=== PATIENT | female | born 2000 | race Caucasian/White ===

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

== ENCOUNTER 2021-01-11 06:26 | Emergency (ER) | payer OTHER, SELFPAY ==
[2021-01-11 06:45] VITALS: BP 115/66; PULSE 64; RESP 20; TEMP 36.2; O2SAT 99
--- NOTE | 2021-01-11 07:01 | ED.HA ---
HPI - Headache General Chief Complaint: Headache Stated Complaint: headache/vomiting Time Seen by Provider: 01/11/21 07:01 Source: patient, family and RN notes reviewed Mode of arrival: ambulatory Limitations: no limitations History of Present Illness MD elicited complaint: headache Onset description: suddenly and while at rest Location: frontal and temporal Severity: moderate Quality & Timing: throbbing and first headache Exacerbating factors: none Relieving factors: dark room Context: occurred at rest Associated symptoms: nausea and vomiting Treatments prior to arrival: none Related Data Home Medications Medication Instructions Recorded Confirmed No Home Medications 01/11/21 01/11/21 Allergies Allergy/AdvReac Type Severity Reaction Status Date / Time No Known Allergies Allergy Verified 01/11/21 06:44 Review of Systems Review of Systems: All systems reviewed & are unremarkable except as noted in HPI and below PMFSH Past Medical History Medical History (Updated 01/11/21 @ 07:29 by Rufus Buck MD) No active medical problems Surgical History Surgical History (Updated 01/11/21 @ 07:05 by Rufus Buck MD) No pertinent past surgical history Social History Social History (Updated 01/11/21 @ 07:05 by Rufus Buck MD) Smoking status: Never smoker Alcohol intake: never Substance use: never Exam Const: General: healthy appearing and no acute distress Nutritional Appearance: well nourished Orientation/consciousness: patient oriented x3 Other: female nurse in room during examination HENMT: Head: normal to inspection Ears: external ears normal and TM's normal bilaterally Face and sinus: normal facial exam Mouth: Yes moist mucous membranes abnormal Eyes: Conjunctivae: conjunctivae normal Pupils: Equal, round and reactive pupils present EOM: EOMs intact bilaterally Neck: Neck: normal visual inspection Resp: Effort & Inspection: normal respiratory effort Auscultation: clear to auscultation bilaterally Cardio: Rate: regular rate Rhythm: regular rhythm GI: GI Palp: Yes Soft to palpation and No Tenderness to palpation present (GI) Auscultation: normal bowel sounds Back/Spine/Pelvis: Cervical Spine: cervical ROM normal Thoracic/Lumbar Spine: thoraco-lumbar ROM normal Skin: General skin exam: normal color Rashes: no rashes Neuro: General: patient oriented x3, moves all extremities, no meningeal signs and no focal motor deficits Speech: normal speech Gait exam (Neuro): Normal gait present Extrem: General: normal to inspection and no clubbing, cyanosis or edema Psych: Appearance: grossly normal and well kempt Mental Status: mental status grossly normal Affect: normal affect Attitude: cooperative Thought content: Yes Normal thought content present Course Vital Signs Vital signs: Vital Signs Temperature 36.2 C L 01/11/21 06:45 Pulse Rate 64 01/11/21 06:45 Respiratory Rate 20 01/11/21 06:45 Blood Pressure 115/66 01/11/21 06:45 Pulse Oximetry 99 01/11/21 06:45 Temperature 36.2 C L 01/11/21 06:45 Pulse Rate 64 01/11/21 06:45 Respiratory Rate 14 01/11/21 08:00 Blood Pressure 115/66 01/11/21 06:45 Pulse Oximetry 99 01/11/21 06:45 Discharge Plan Discharge Clinical Impression: Tension headache Patient Disposition: Home, Self-Care Condition: Stable Instructions: Tension Headache (ED) Additional Instructions: Home and rest in a quiet dark room. Prescriptions: No Action No Home Medications RF: 0 Follow-up/Referrals: Davdi Castillo MD [Primary Care Provider] - Time of Disposition: 07:29
--- NOTE | 2021-01-11 07:06 | PC.NURSE ---
Report to RAMSES Weinstein
[2021-01-11] MEDS: KETOROLAC 30 MG/ML VIAL (*BKC) IV PUSH (07:24)
[2021-01-11] MEDS: diphenhydrAMINE HCl INJ 50 MG/ML VIAL IV PUSH (07:24)
[2021-01-11] MEDS: ONDANSETRON INJ 4 MG/2 ML VIAL IV PUSH (07:24)
[2021-01-11 08:00] VITALS: RESP 14
== END 2021-01-11 08:00 | disposition home or self-care (01) ==
PROVIDERS: Emergency Provider Emergency Medicine; PCP Internal Medicine
DX: G44.209 Tension-type headache, unspecified, not intractable (principal)
CPT/HCPCS: 96374; 96375; 99283; 99284; J1200; J1885; J2405

== ENCOUNTER 2021-01-11 13:48 | Outpatient (CLI) | payer OTHER, SELFPAY ==
--- NOTE | ~2021-01-11 | CT_ITS ---
EXAMINATION: CT brain wo con INDICATION: Headache COMPARISON: None TECHNIQUE: Standard unenhanced head CT. The dose-length product (DLP) was 605.33 mGy-cm. The mA was a djusted according to patient size. Iterative reconstruction technique was employed. FINDINGS: There is no intracranial hemorrhage, acute infarction, or abnormal mass lesion. The ventric les are normal. There is no abnormal mass effect or midline shift. The pratt-white matter differentiat ion is normal. The basal cisterns are patent. The orbits are normal. The paranasal sinuses, mastoids and calvarium are normal. IMPRESSION: 1. No acute intracranial abnormality. Reviewed, dictated and finalized at location A.
== END 2021-01-11 13:49 | disposition home or self-care (01) ==
LOC: CHSIMG 13:51
PROVIDERS: PCP Internal Medicine; Visit Provider Internal Medicine
DX: R51.9 Headache, unspecified (principal)
CPT/HCPCS: 70450

== ENCOUNTER 2021-01-20 06:05 | Emergency (ER) | payer OTHER, SELFPAY ==
--- NOTE | ~2021-01-20 | CT_ITS ---
EXAMINATION: CT brain wo con DATE: 01/20/2021 06:39 INDICATION: Transient left hemiparesis TECHNIQUE: Computed tomography (CT) of the head was performed without intravenous contrast. Sagittal and coronal reconstructions were performed. The mA was adjusted according to patient size. Iterative reconstruction technique was employed. The dose-length product was 605.33 mGy-cm. COMPARISON: head CT dated 01/11/2021 FINDINGS: No acute intracranial hemorrhage, acute infarction or abnormal extra axial fluid collection. Ventricl es are normal and symmetric. No mass/mass effect. The orbits, paranasal sinuses and mastoid air cells are normal. IMPRESSION: 1. Normal head CT. Reviewed, dictated and finalized at location A. IMPRESSION: 1. Normal head CT.
[2021-01-20 06:05] VITALS: BP 127/79; PULSE 60; RESP 20; TEMP 36.9; O2SAT 98
--- NOTE | 2021-01-20 06:27 | ED.NEUROSD ---
HPI - Neuro Symptoms/Deficit General Chief Complaint: Neuro Symptoms/Deficit <MD Devin Ansari Last Filed: 01/22/21 14:57> Stated Complaint: Cant feel L leg and arm <MD Devin Ansari Last Filed: 01/22/21 14:57> Time Seen by Provider: 01/20/21 06:05 <MD Devin Ansari Last Filed: 01/22/21 14:57> Source: patient and family <MD Devin Ansari Last Filed: 01/22/21 14:57> Mode of arrival: ambulatory <MD Devin Ansari Last Filed: 01/22/21 14:57> Limitations: no limitations <MD Devni Ansari Last Filed: 01/22/21 14:57> History of Present Illness HPI Narrative: Patient come in after getting up at 5:30 am and having numbness in her left leg, weakness in her left hand, and tingling on the left side of her face around her mouth and tongue. She immediately took Excedrin migraine. She now has essentially no symptoms, and her stroke scale is zero. She had a similar episode while gone on vacation, in [place], she was seen there, admitted for two days, this last Monday and Monday, and worked up by neurology and ID. She was then discharged with studies still pending. She did well until this am <MD Devin Ansari Last Filed: 01/22/21 14:57> Onset (ago): hour(s) <MD Devin Ansari Last Filed: 01/22/21 14:57> Timing confirmed by: family member <MD Devin Ansari Last Filed: 01/22/21 14:57> Location: speech, left arm and left leg <MD Devin Ansari Last Filed: 01/22/21 14:57> Severity: mild <MD Devin Ansari Last Filed: 01/22/21 14:57> Relieving factors: medication <MD Devin Ansari Last Filed: 01/22/21 14:57> Exacerbating factors: none <MD Devin Ansari Last Filed: 01/22/21 14:57> Context: sudden onset <MD Devin Ansari Last Filed: 01/22/21 14:57> On Anticoagulants: Yes <MD Devin Ansari Last Filed: 01/22/21 14:57> Associated symptoms: other (symptoms have now resolved ) <MD Devin Ansari Last Filed: 01/22/21 14:57> Treatments Prior to Arrival: Aspirin <Rufus LMD Devin Sutherland Last Filed: 01/22/21 14:57> Related Data Allergies/Adverse Reactions: Allergies Allergy/AdvReac Type Severity Reaction Status Date / Time No Known Allergies Allergy Verified 01/11/21 06:44 <MD Devin Ansari Last Filed: 01/22/21 14:57> Review of Systems Constitutional: Constitutional: Reports no additional constitutional complaints <Rufus LMD Devin Sutherland Last Filed: 01/22/21 14:57> Eyes: Eyes: Reports no additional eye complaints <Rufus LMD Devin Sutherland Last Filed: 01/22/21 14:57> ENT: Reports system reviewed and no additional complaints, except as documented <Rufus LMD Devin Sutherland Last Filed: 01/22/21 14:57> Cardiovascular: Cardiovascular: Reports no additional cardiovascular complaints <Rufus LMD Devin Sutherland Last Filed: 01/22/21 14:57> Respiratory: Respiratory: Reports no additional respiratory complaints <Rufus LMD Devin Sutherland Last Filed: 01/22/21 14:57> Gastrointestinal: Gastrointestinal: Reports no additional gastrointestinal complaints <Rufus LMD Devin Sutherland Last Filed: 01/22/21 14:57> Genitourinary: Genitourinary: Reports no additional female genitourinary complaints <Rufus LMD Devin Sutherland Last Filed: 01/22/21 14:57> Musculoskeletal: Musculoskeletal: Reports no additional musculoskeletal complaints <Rufus L. MD Devin Bourgeois Last Filed: 01/22/21 14:57> Integumentary/Breasts: Skin/Breast: Reports system reviewed and no additional complaints, except as docu <Rufus LMD Devin Sutherland Last Filed: 01/22/21 14:57> Neurologic: Reports system reviewed and no additional complaints, except as documented <Rufus LMD Devin Sutherland Last Filed: 01/22/21 14:57> Psychiatric: Psychiatric: Reports no additional psychiatric complaints <Rufus L. Day, MD - Last Filed: 01/22/21 14:57> Endocrine: Endocrine: Reports no additional endocrine complaints <Rufus Bourgeois MD - Last Filed: 01/22/21 14:57> Hematologic/Lymphatic: Hematologic/Lymphatic: Reports no additional hematologic
[2021-01-20 06:51] LABS: Add Urine Microscopic? NO; Appearance Urine Clear (Clear); Basophils Absolute Auto 0.02 K/mm3 (0.00-0.10); Basophils Percent Auto 0.3 % (0.0-1.0); Bilirubin Urine Negative (Negative); Blood Urine Negative (Negative); Color Urine Light Yellow (Yellow); Eosinophils Absolute Auto 0.24 K/mm3 (0.02-0.50); Eosinophils Percent Auto 3.2 % (1.0-6.0); Glucose Urine UA Negative (Negative); Hematocrit 40.5 % (35.0-49.0); Hemoglobin 13.6 g/dL (12.0-15.0); Immature Granulocyte Absolute 0.03 K/mm3 (0.00-0.00); Immature Granulocyte Percent A 0.4 % (0.0-0.0); Ketones Urine Negative (Negative); Leukocyte Esterase Ur Negative LEU/UL (Negative); Lymphocytes Absolute Auto 1.84 K/mm3 (1.10-4.50); Lymphocytes Percent Auto 24.6 % (18.0-42.0); Mean Corpuscular HGB Conc 33.6 g/dL (32.0-36.0); Mean Corpuscular Hemoglobin 29.7 pg (27.0-31.0); Mean Corpuscular Volume 88.4 fL (78.0-102.0); Mean Platelet Volume 11.1 fl (9.2-11.8); Monocytes Absolute Auto 0.81 K/mm3 (0.10-0.90); Monocytes Percent Auto 10.8 % (2.0-11.0); Neutrophils Absolute Auto 4.6 K/mm3 (1.7-7.2); Neutrophils Percent Auto 60.7 % (50.0-70.0); Nitrate Urine Negative (Negative); Platelet Count Result 296 K/mm3 (150-420); Protein Urine Negative (Negative); Red Blood Count 4.58 M/mm3 (4.20-5.40); Red Cell Distribution Width 12.2 % (11.6-14.4); Urobilinogen Urine 0.2 mg/dL (0.2-1.0); White Blood Count 7.5 K/mm3 (4.8-10.8); pH Urine 5.5 (5.0-8.0)
[2021-01-20 07:04] LABS: Amphetamine Screen Urine Negative (Negative); Barbiturate Screen Urine Negative (Negative); Benzodiazepines Screen Urine Negative (Negative); Cannabinoid Screen Urine Negative (Negative); Cocaine Screen Urine Negative (Negative); Methadone Screen Urine Negative (Negative); Opiate Screen Urine Negative (Negative); Phencyclidine Screen Urine Negative (Negative)
--- NOTE | 2021-01-20 07:04 | PC.NURSE ---
Pt. resting, no c/o. Report to RAMSES Salmon
[2021-01-20 07:05] LABS: Alanine Aminotransferase 20 U/L (14-59); Albumin Level 3.7 g/dL (3.4-5.0); Alkaline Phosphatase 49 U/L (50-130); Anion Gap 10 mmol/L (8-16); Aspartate Amino Transferase 10 U/L (15-37); Bilirubin,Total 0.6 mg/dL (0.00-1.00); Blood Urea Nitrogen 13 mg/dL (7-18); CRP 0.2 mg/dL (0.0-0.9); Calcium 9.1 mg/dL (8.5-10.1); Carbon Dioxide 28 mmol/L (21-32); Chloride 103 mmol/L (98-108); Estimated CRCL calculation 82 ml/min; Estimated Glomerular Filt Rate > 60; Glucose 92 mg/dL (70-99); Osmolality Calculated 292 mOsm/kg (285-295); Potassium 3.7 mmol/L (3.5-5.1); Sodium 141 mmol/L (136-145); Total Protein 6.7 g/dL (6.4-8.2)
[2021-01-20 07:34] VITALS: BP 117/79; PULSE 69; RESP 14; TEMP 36.6; O2SAT 99
[2021-01-20] MEDS: ACETAMINOPHEN 325 MG TABLET 650 MG PO (07:38)
[2021-01-20 07:51] LABS: Erythrocyte Sedimentation Rate 8 mm/hr (0-15)
--- NOTE | 2021-01-20 08:34 | ED.NEUROSD ---
HPI - Neuro Symptoms/Deficit General Chief Complaint: Neuro Symptoms/Deficit Stated Complaint: Cant feel L leg and arm Time Seen by Provider: 01/20/21 06:05 Source: patient and family Mode of arrival: ambulatory Limitations: no limitations History of Present Illness Location: speech, left arm and left leg Severity: mild Relieving factors: medication Exacerbating factors: none On Anticoagulants: Yes Treatments Prior to Arrival: Aspirin Related Data Allergies Allergy/AdvReac Type Severity Reaction Status Date / Time No Known Allergies Allergy Verified 01/11/21 06:44 Review of Systems Review of Systems: All systems reviewed & are unremarkable except as noted in HPI and below Constitutional: Constitutional: Reports as per HPI and Reports no additional constitutional complaints Eyes: Eyes: Reports as per HPI and Reports no additional eye complaints ENT: Reports system reviewed and no additional complaints, except as documented and Reports as per HPI Cardiovascular: Cardiovascular: Reports as per HPI and Reports no additional cardiovascular complaints Respiratory: Respiratory: Reports as per HPI and Reports no additional respiratory complaints Gastrointestinal: Gastrointestinal: Reports as per HPI and Reports no additional gastrointestinal complaints Genitourinary: Genitourinary: Reports no additional female genitourinary complaints and Reports as per HPI Musculoskeletal: Musculoskeletal: Reports no additional musculoskeletal complaints Integumentary/Breasts: Skin/Breast: Reports system reviewed and no additional complaints, except as docu and Reports as per HPI Neurologic: Reports headache(s), Reports tingling and Reports weakness Comments: Pt sxs were recurrent. Psychiatric: Psychiatric: Reports no additional psychiatric complaints and Reports as per HPI Endocrine: Endocrine: Reports no additional endocrine complaints and Reports as per HPI Hematologic/Lymphatic: Hematologic/Lymphatic: Reports no additional hematologic/lymphatic complaints and Reports as per HPI Allergic/Immunologic: Allergic/Immunologic: Reports no additional allergic/immunologic complaints [facility] Past Medical History Medical History (Updated 01/20/21 @ 13:24 by Angela Chao PA-C) No active medical problems Surgical History Surgical History (Updated 01/20/21 @ 13:14 by Angela Chao PA-C) No history of previous surgery No pertinent past surgical history Family History Family History Other No significant family history Social History Social History (Updated 01/20/21 @ 13:21 by Angela G. Gerling, PA-C) Social History: The patient lives in [place] with her family. Nonsmoker. No alcohol or illicit substance abuse. She designates her mother, Sweetie Gonsalez, as her surrogate decision maker. Code status: Full code. Exam Const: General: cooperative, healthy appearing, comfortable, well developed, alert and awake Nutritional Appearance: well nourished Orientation/consciousness: oriented to person, oriented to place and patient oriented x3 Limitations: no limitations HENMT: Head: normal to inspection, normocephalic and atraumatic Ears: hearing grossly normal bilaterally, external ears normal and TM's normal bilaterally General nose exam: Normal external nose present, Normal nares present and Normal nasal mucous membranes and turbinates present Mouth: Yes Normal oral and palatal mucosa present, Yes lip normal, Yes tongue normal, Yes oropharynx normal and Yes moist mucous membranes Teeth and gingiva: dentition normal and gingiva normal Throat: posterior oropharynx normal, tonsils normal and uvula midline Eyes: General: appearance normal, both eyes and all related structures Visual Douglass: normal visual douglass by confrontation Alignment and Position: alignment normal and position normal Periorbital: periorbital findings normal Eyelids: eyelids
--- NOTE | 2021-01-20 11:20 | PC.NURSE ---
1110 telephone report provided to brice barclay at [facility]. susan paged out for ALS transfer at [phone]
== END 2021-01-20 07:40 | disposition home or self-care (01) ==
PROVIDERS: Emergency Medicine; Emergency Provider Emergency Medicine; PCP Internal Medicine
DX: G43.909 Migraine, unspecified, not intractable, without status migrainosus (principal)
CPT/HCPCS: 36415; 70450; 80053; 80307; 81003; 85025; 85652; 86140; 99282; 99284; A9270

== ENCOUNTER 2021-01-20 08:12 | Emergency (ER) | payer OTHER, SELFPAY ==
[2021-01-20 08:20] VITALS: BP 118/77; PULSE 70; RESP 16; TEMP 36.6; O2SAT 100
[2021-01-20 08:30] VITALS: PULSE 70
--- NOTE | 2021-01-20 08:49 | ED.GENADULT ---
HPI - General Adult General Chief complaint: Unspecified Stated complaint: NUMBNESS ON L SIDE Time Seen by Provider: 01/20/21 08:22 Source: patient, family, RN notes reviewed and old records reviewed Mode of arrival: ambulatory Limitations: no limitations History of Present Illness HPI narrative: Pt returned to the ED, post discharge approx. 30 mins ago. See previous ED chart complaint: Left sided tingling and weakness with recurrent OSORIO Onset (ago): minute(s) Location: head Severity: mild Severity scale (1-10): 5 Quality: aching and dull Pain Consistency: constant Relieving factors: medication Exacerbating factors: none Associated symptoms: other (left sided tingling and weakness) Treatments prior to arrival: none Related Data Allergies Allergy/AdvReac Type Severity Reaction Status Date / Time No Known Allergies Allergy Verified 01/11/21 06:44 Review of Systems Review of Systems: All systems reviewed & are unremarkable except as noted in HPI and below Constitutional: Constitutional: Reports as per HPI and Reports no additional constitutional complaints Eyes: Eyes: Reports as per HPI and Reports no additional eye complaints ENT: Reports system reviewed and no additional complaints, except as documented and Reports as per HPI Cardiovascular: Cardiovascular: Reports as per HPI and Reports no additional cardiovascular complaints Respiratory: Respiratory: Reports as per HPI and Reports no additional respiratory complaints Gastrointestinal: Gastrointestinal: Reports as per HPI and Reports no additional gastrointestinal complaints Genitourinary: Genitourinary: Reports no additional female genitourinary complaints and Reports as per HPI Musculoskeletal: Musculoskeletal: Reports muscle weakness, Reports tingling and Reports other (pt had left sided sxs.) Integumentary/Breasts: Skin/Breast: Reports system reviewed and no additional complaints, except as docu and Reports as per HPI Neurologic: Reports as per HPI, Reports tingling and Reports weakness Psychiatric: Psychiatric: Reports no additional psychiatric complaints and Reports as per HPI Endocrine: Endocrine: Reports no additional endocrine complaints and Reports as per HPI Hematologic/Lymphatic: Hematologic/Lymphatic: Reports no additional hematologic/lymphatic complaints and Reports as per HPI Allergic/Immunologic: Allergic/Immunologic: Reports no additional allergic/immunologic complaints and Reports as per HPI PMFSH Past Medical History Medical History (Updated 01/20/21 @ 13:24 by Angela Chao PA-C) No active medical problems Surgical History Surgical History (Updated 01/20/21 @ 13:14 by Angela Chao PA-C) No history of previous surgery No pertinent past surgical history Family History Family History Other No significant family history Social History Social History (Updated 01/20/21 @ 13:21 by Angela Chao PA-C) Social History: The patient lives in [place] with her family. Nonsmoker. No alcohol or illicit substance abuse. She designates her mother, Sweetie Gonsalez, as her surrogate decision maker. Code status: Full code. Course Vital Signs Vital signs: Vital Signs Temperature 36.6 C 01/20/21 08:20 Pulse Rate 70 01/20/21 08:20 Respiratory Rate 16 01/20/21 08:20 Blood Pressure 118/77 01/20/21 08:20 Pulse Oximetry 100 01/20/21 08:20 Temperature 36.6 C 01/20/21 08:20 Pulse Rate 65 01/20/21 11:40 Respiratory Rate 16 01/20/21 11:40 Blood Pressure 103/67 01/20/21 11:40 Pulse Oximetry 99 01/20/21 11:40 Medical Decision Making Vital Signs Vital Signs: Vital Signs Temperature 36.6 C 01/20/21 08:20 Pulse Rate 70 01/20/21 08:20 Respiratory Rate 16 01/20/21 08:20 Blood Pressure 118/77 01/20/21 08:20 Pulse Oximetry 100 01/20/21 08:20 Temperature 36.6 C 01/20/21 08:20 Pulse Rate 65
--- NOTE | 2021-01-20 09:01 | PC.NURSE ---
pt and family requesting to be sent to [facility]. [facility] cyber forensic specialist, andres, contacted at [phone], spoke with erp. awaiting call back from stroke team
--- NOTE | 2021-01-20 09:41 | PC.NURSE ---
aggie refused transfer to their facility. please see erp documentation for specifics. [facility] transfer line contacted at this time. rn spoke with deny lacy. awaiting call back from hospitalist dr. weaver.
[2021-01-20] MEDS: SODIUM CHLORIDE 0.9% IV 1,000 ML 150 ML IV CONT (10:12)
[2021-01-20] MEDS: ONDANSETRON INJ 4 MG/2 ML VIAL IV PUSH (10:13)
[2021-01-20] MEDS: MORPHINE SULFATE (*CRX) 2 MG/ML INJ IV PUSH (10:13)
--- NOTE | 2021-01-20 10:48 | PC.NURSE ---
dr. owen walton hospitalist accepted patient at 1045. regino rooming house keeper made aware. awaiting call back with bed placement.
--- NOTE | 2021-01-20 10:59 | PC.NURSE ---
room 320 provided by regino barclayassistant district attorney at [place]. telephone number for report provided as well.
--- NOTE | 2021-01-20 11:21 | PC.NURSE ---
1110 telephone report provided to receiving en at [facility], brice barclay. [phone] saas paged for als transfer.
[2021-01-20 11:40] VITALS: BP 103/67; PULSE 65; RESP 16; O2SAT 99
== END 2021-01-20 11:40 | disposition short-term general hospital (02) ==
PROVIDERS: Emergency Provider Emergency Medicine; PCP Internal Medicine
DX: G43.909 Migraine, unspecified, not intractable, without status migrainosus (principal)
CPT/HCPCS: 96361; 96374; 96375; 99284; 99285; J2270; J2405; J7030

== ENCOUNTER 2021-01-20 12:24 | Observation (INO) | payer OTHER, SELFPAY ==
--- NOTE | ~2021-01-20 | MR_ITS ---
EXAMINATION: MR brain/brain stem wo/w con DATE: 01/21/2021 11:27 INDICATION: Left hemiparesis. TECHNIQUE: Magnetic resonance imaging (MRI) of the brain and brainstem was performed without and with 13 mL MultiHance intravenous contrast. Sequences included sagittal and axial T1-weighted FSE, axial diffusion-weighted FS EPI, axial T2*-weighted GRE, axial T2-weighted FLAIR Propeller, and axial T2-we ighted Propeller. Postcontrast sequences included axial and coronal T1-weighted FSE. Apparent diffusi on coefficient (ADC) maps were created. COMPARISON: Head CT 01/20/2021 FINDINGS: There is no intracranial hemorrhage, acute infarction, or abnormal intracranial mass lesion . The ventricles are normal in size. The paranasal sinuses are clear. The mastoid air cells are rustam l. The orbits are normal. IMPRESSION: 1. Normal brain. Reviewed, dictated and finalized at location A. IMPRESSION: 1. Normal brain.
[2021-01-20 12:33] VITALS: BMI 22.6
--- NOTE | 2021-01-20 12:35 | ADMGEN ---
This patient, Heather Gonsalez, was admitted to [facility] Room 320-01 from [facility] direct admission at 1230. Patient/family oriented to hospital policies and general routines including ID bracelet, bed and alarms, visiting hours, pain management, procedures, bathroom and other care routines, personal items, smoking policy, room service/diet, and visiting hours. Information on how to activate the Rapid Response Team has been discussed. Patient/Family are encouraged to report perceived risks to care and to ask questions if they do not understand what they are told or what they should do.
--- NOTE | 2021-01-20 13:30 | PM.IMHP ---
H&P: HPI History of Present Illness Date/Time: 01/20/21 13:30 Chief Complaint: Headache and left-sided weakness and paresthesia. Narrative: This is a very pleasant 20-year-old female who is being directly admitted to the hospitalist service from the emergency department at the [facility] for further evaluation of headache and left-sided weakness and paresthesias. she is previously healthy and has no significant medical history up until recently when she began having headaches and associated neurologic symptoms. On January 11 she was wakened from sleep at 04:00 with a pretty severe, throbbing bitemporal headache with photosensitivity, dizziness, nausea, and vomiting. She took Advil however that was not beneficial and due to the severity of her headache she was seen in the emergency department at [place] at which time a brain CT was unremarkable. It sounds as though she had some sort of migraine cocktail which made her very somnolent and she was discharged home feeling better though her headache returned later that night before finally resolving the next day. Couple of days thereafter she and her family drove to [place] for vacation and last Monday morning she awoke with tingling in her left arm which over a short period of time extended to include the left lower extremity and left side of her face. She then was having weakness in her left upper extremity and difficulties speaking. She was admitted to a local hospital in [place], [place] overnight and it sounds as though she had a lumbar puncture at that time and it was thought perhaps she had some sort of viral meningitis. Her neurologic symptoms did come and go intermittently throughout this stay and she was told that she was likely having complex migraines although it does not sound as though she was seen by a neurologist. She felt better on discharge however early this morning she once again started having similar symptoms EF. Her symptoms started with left-sided paresthesias and weakness and she developed a headache thereafter. It improved somewhat with Excedrin that she took this morning. Due to ongoing symptoms it was thought she would benefit from transferred to [place] for consultation with neurology. At the time my evaluation she has no headache and has no specific complaints. She has no prior history of migraine headaches. No recent fall or head trauma. No recent tick or mosquito bites. She denies sick contacts. Review of Systems Review of Systems: Narrative: Twelve systems were reviewed. She denies fever, chills, and sweats. No neck ache. No sinus congestion, rhinorrhea, otalgia, or odynophagia. She denies vertigo. No current focal weakness or paresthesias. No chest pain or shortness of breath. No palpitations or history of cardiac dysrhythmia. No syncope or near syncope. She denies nausea, vomiting, and diarrhea. No dysuria. Last menstrual period was approximately 3 weeks ago. No depression or anxiety. Except as documented, all other systems were reviewed and are negative. [facility] Past Medical History Medical History (Updated 01/20/21 @ 13:24 by Anegla Chao PA-C) No active medical problems Surgical History Surgical History (Updated 01/20/21 @ 21:18 by Angela Chao PA-C) No history of previous surgery Family History Family History Other No significant family history Social History Social History Social History: The patient lives in [place] with her family. Nonsmoker. No alcohol or illicit substance abuse. She designates her mother, Sweetie Gonsalez, as her surrogate decision maker. Code status: Full code. Meds Home Medications and Allergies Home Medications Medication Instructions Recorded Confirmed Type No Home Medications 01/20/21 01/20/21 History Allergies Allergy/AdvReac Ty
[2021-01-20 14:00] VITALS: BP 111/54; PULSE 71; RESP 14; TEMP 36.6; O2SAT 100
[2021-01-20 16:00] VITALS: PULSE 70
[2021-01-20 20:00] VITALS: PULSE 77
[2021-01-20 21:10] VITALS: BP 112/72; PULSE 81; RESP 20; TEMP 36.6; O2SAT 100
[2021-01-21] VITALS (7 sets, daily range): BP systolic 105–122; BP diastolic 51–72; PULSE 57–84; RESP 16–18; TEMP 36.2–36.6; O2SAT 99–100
[2021-01-21] MEDS: ACETAMINOPHEN 325 MG TABLET 650 MG PO (01:08)
--- NOTE | 2021-01-21 04:02 | PC.NURSE ---
0305: Pt c/o of headache and stated that Tylenol 650mg has not worked. Notified Dr. Linares to request for analgesic that is more potent. reports that she'll take a look at the chart and get back to me.
[2021-01-21] MEDS: KETOROLAC 30 MG/ML VIAL (*BKC) IV PUSH ×2 (04:53→10:45)
--- NOTE | 2021-01-21 07:44 | PM.IMPN ---
Progress Note: A&P Assessment and Plan (1) Left-sided weakness: Code(s): R53.1 - Weakness Status: Acute (2) Paresthesias: Code(s): R20.2 - Paresthesia of skin Status: Acute (3) Headache: Code(s): R51.9 - Headache, unspecified Status: Acute Additional Plan The patient has had several episodes of left-sided weakness and paresthesias prior to a start of a headache. This is likely a migraine aura however patient was told she may have had viral meningitis on recent lumbar puncture during her hospitalization in [place], [place]. Records have been requested for review. Brain MRI has been ordered for a.m. to rule out other pathology. Dr. Burton has been consulted and his input is appreciated. Subjective Date/time seen: 01/21/21 07:44 Review of Systems Constitutional: Constitutional: Denies excessive sweating, Denies headache(s), Denies increased appetite, Denies snoring and Denies weight gain Eyes: Eyes: Denies exophthalmos, Denies diplopia, Denies floaters and Denies loss of peripheral vision ENT: Denies facial pain, Denies headache(s), Denies odynophagia and Denies tinnitus Respiratory: Respiratory: Denies snoring Gastrointestinal: Gastrointestinal: Denies odynophagia Neurologic: Denies headache(s) Endocrine: Endocrine: Denies excessive sweating Exam Narrative: Exam Narrative: General: Well-developed female in the semi-Pereira position in bed in no distress. Weight: 67.6 kg. BMI: 22.7. HEENT: Normocephalic, atraumatic. PERRL, EOMI. Sclerae anicteric. Oral mucosa moist. Oropharynx clear. Neck: Supple. Full range of motion. No bruits. No midline vertebral tenderness. Respiratory: Lungs are clear to auscultation bilaterally. Cardiovascular: Regular rate and rhythm with S1-S2. No murmur, rub, or gallop. Gastrointestinal: Abdomen is soft, nontender, and nondistended with positive bowel sounds. Skin: Warm, dry, and molina. Extremities: No cyanosis, clubbing, or edema. Radial and pedal pulses intact. Neurological: Alert and oriented x4. Cranial nerves 2-12 are grossly intact. Speech is clear. No facial asymmetry. no pronator drift. Normal [id number], rapid alternating movements, and heel to felix. Strength 5/5 in upper lower extremities. Neurovascularly intact throughout. Psychiatric: Pleasant and cooperative with normal mood and affect. Judgment and insight intact. Objective Data Vital Signs Vital Signs: Vital Signs - 24 hr 01/20/21 14:00 01/20/21 16:00 01/20/21 20:00 Temperature 36.6 C Pulse Rate 71 70 77 Respiratory Rate 14 Blood Pressure 111/54 L Pulse Oximetry 100 01/20/21 21:10 01/21/21 00:00 01/21/21 04:00 Temperature 36.6 C Pulse Rate 81 64 60 Respiratory Rate 20 Blood Pressure 112/72 Pulse Oximetry 100 01/21/21 04:59 Temperature 36.2 C L Pulse Rate 62 Respiratory Rate 18 Blood Pressure 105/51 L Pulse Oximetry 99 Intake/Output Intake/Output: Intake & Output 01/18/21 01/19/21 01/20/21 01/21/21 23:59 23:59 23:59 23:59 Intake Total 250 390 Balance 250 390 Meds/Results Medications: Active Medications Generic Name Dose Route Start Last Admin Trade Name Freq PRN Reason Stop Dose Admin Acetaminophen 650 mg 01/20/21 12:37 01/21/21 01:08 Acetaminophen 325 Mg Tablet PO 650 mg Q4H PRN Administration Mild Pain (1-3) or Fever Ketorolac Tromethamine 30 mg 01/21/21 03:24 01/21/21 04:53 Ketorolac 30 Mg/Ml Vial (*Bkc) IV PUSH 30 mg Q6H PRN Administration Pain Rated 4-10 Ondansetron HCl 4 mg 01/20/21 12:37 Ondansetron Inj 4 Mg/2 Ml Vial IV PUSH Q6H PRN Nausea And Vomiting Quality VTE Prophylaxis VTE prophylaxis: mechanical ordered
[2021-01-21 09:16] LABS: Phosphorus 3.4 mg/dL (2.5-4.5)
[2021-01-21 09:28] LABS: Parathyroid Intact 25.7 pg/mL (7.5-53.5)
[2021-01-21 10:35] LABS: Folic Acid 11.2 ng/mL (2.76->20)
[2021-01-21 16:09] LABS: SPREG INTERNAL CONTROL Positive; Serum Qual hCG Negative
--- NOTE | 2021-01-21 17:34 | PM.DS ---
DS: Admitting Diagnosis Admitting Diagnosis Admitting Diagnosis: Headache DS: Discharge Diagnosis Discharge Diagnosis (1) Headache: Code(s): R51.9 - Headache, unspecified Status: Acute Assessment and Plan: Chief Complaint: Headache and left-sided weakness and paresthesia. previously healthy and has no significant medical history up until recently when she began having headaches and associated neurologic symptoms. history of 02/27/2020 COVID + test history of 2 Moderna Vaccines with the last dose in November 2020 Hcg test negative. Not on control pills, Regular normal periods per patient and mother report. head CT clear. clear drug screen. LFTs wnl. She denies fever, chills, and sweats. No neck ache. No sinus congestion, rhinorrhea, otalgia, or odynophagia. She denies vertigo. No current focal weakness or paresthesias. No chest pain or shortness of breath. No palpitations or history of cardiac dysrhythmia. No syncope or near syncope. She denies nausea, vomiting, and diarrhea. No dysuria. Last menstrual period was approximately 3 weeks ago. No depression or anxiety. 1st epidsode: On January 11 she was wakened from sleep at 04:00 with a pretty severe, throbbing bitemporal headache with photosensitivity, dizziness, nausea, and vomiting. Tried Advil however that was not beneficial and due to the severity of her headache she was seen in the emergency department at [facility] at which time a brain CT was unremarkable. 2nd episode: [place] for vacation and awoke with tingling in her left arm which over a short period of time extended to include the left lower extremity and left side of her face. She then was having weakness in her left upper extremity and difficulties speaking. She was admitted to a local hospital in [place], [place] overnight and it sounds as though she had a lumbar puncture at that time and it was thought perhaps she had some sort of viral meningitis. Her neurologic symptoms did come and go intermittently throughout this stay and she was told that she was likely having complex migraines although it does not sound as though she was seen by a neurologist. 3rd episode: this admission, several episodes of left-sided weakness and paresthesias prior to a start of a headache. Possible migraine aura or Complex Migraine. Records have been requested for review. Brain MRI has been ordered for today and found to be normal. Dr. Burton has been consulted , feels she is having migraines, suggested discharging her with Zonisamide 50 mg daily, Imitrex 25 mg PRN daily, and Advil over the counter PRN. Patient was instructed to follow up with [facility] or [facility] neurologist for further eval. if s/s return. (2) Paresthesias: Code(s): R20.2 - Paresthesia of skin Status: Acute Assessment and Plan: see HEADACHE plan improved. currently resolved. (3) Left-sided weakness: Code(s): R53.1 - Weakness Status: Acute Assessment and Plan: see HEADACHE plan improved. currently resolved. DS: Summary Hospital Course Hospital Course: patient s/s resolved, headache improved and resolved, Neurologist consulted, Head CT and MRI clear, patient discharged per Neurologist recommendations. Time Spent with Patient Time attestation: Total time spent providing and/or coordinating discharge services: 45 mintues Exam Narrative: Exam Narrative: General: Well-developed female in the semi-Pereira position in bed in no distress. Weight: 67.6 kg. BMI: 22.7. HEENT: Normocephalic, atraumatic. PERRL, EOMI. Sclerae anicteric. Oral mucosa moist. Oropharynx clear. Neck: Supple. Full range of motion. No bruits. No midline vertebral tenderness. Respiratory: Lungs are clear to auscultation bilaterally. Cardiovascular: Regular rate and rhythm with S1-S2. No murmur, rub, or gallop. Gastrointestinal: Abdomen is soft, nontender, and nondistended with positive bowel sounds. Skin: Warm, dry, and molina. Extremities:
== END 2021-01-21 16:33 | disposition home or self-care (01) ==
PROVIDERS: Nurse Practitioner; Admitting Provider Internal Medicine; PCP Internal Medicine; Visit Provider Internal Medicine
DX: R51.9 Headache, unspecified (principal); R53.1 Weakness; R20.2 Paresthesia of skin
CPT/HCPCS: 36415; 70553; 82306; 82607; 82746; 83735; 83970; 84100; 84443; 84703; 96374; 96376; A9270; A9577; G0378; G0379; J1885